=== PATIENT | female | born 1940 ===

== ENCOUNTER 2023-09-25 10:14 | Outpatient (REF) | payer MEDICARE, OTHER, SELFPAY ==
--- NOTE | ~2023-09-25 | XR_ITS ---
EXAMINATION: XR BILATERAL SHOULDERS CLINICAL INFORMATION: Pain in bilateral shoulder. TECHNIQUE: 2 views of each shoulder. COMPARISON: None available. FINDINGS: LEFT SHOULDER: Advanced degenerative changes in the acromioclavicular joint with joint space narrowing and hypertrophic change. Distal end of the clavicle appears somewhat attenuated. Glenohumeral alignment maintained with mild degenerative changes. 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 XR/XR shoulder RT min 2V IMPRESSION: 1. Advanced degenerative changes left acromioclavicular joint. 2. Mild degenerative changes right acromioclavicular joint and glenohumeral joint.
--- NOTE | ~2023-09-25 | XR_ITS ---
EXAMINATION: XR BILATERAL SHOULDERS CLINICAL INFORMATION: Pain in bilateral shoulder. TECHNIQUE: 2 views of each shoulder. COMPARISON: None available. FINDINGS: LEFT SHOULDER: Advanced degenerative changes in the acromioclavicular joint with joint space narrowing and hypertrophic change. Distal end of the clavicle appears somewhat attenuated. Glenohumeral alignment maintained with mild degenerative changes. 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 XR/XR shoulder LT min 2V IMPRESSION: 1. Advanced degenerative changes left acromioclavicular joint. 2. Mild degenerative changes right acromioclavicular joint and glenohumeral joint.
== END 2023-09-25 10:15 | disposition home or self-care (01) ==
LOC: HO.HOSX 10:14
PROVIDERS: Visit Provider Orthopaedic Surgery
DX: M25.512 Pain in left shoulder (principal); M25.511 Pain in right shoulder
CPT/HCPCS: 73030; J1010

== ENCOUNTER 2023-09-25 10:58 | Outpatient (AMB) | payer MEDICARE, OTHER, SELFPAY ==
--- NOTE | 2023-09-25 11:15 | MHC.OFFVIS ---
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 Bolton for bilateral shoulder pain. Patient reports her pain has been going on for about a month and is a 7 on the 1-10 pain scale. She is using arnicare gel, heat, cortisone injections and tylenol with some relief. She denies injury. She did have shoulder surgery but doesn't remember which one. She reports mild weakness in both of her shoulders. She continues with her home stretching program. Allergies No Known Allergies Allergy (Verified 09/25/23 11:27) Medication List - Last Reconciled 09/26/23 by Héctor Bolton MD fluticasone propionate 50 mcg/actuation sprays intranasal lisinopril 40 mg PO DAILY nystatin 1 appl topical BID timolol maleate 0.5% drps ophthalmic (eye) [facility] Social History Patient Tobacco Use Status: Never used Tobacco Current occupational status: retired Current occupation: right hand dominant Physical Exam Vital Signs: BMI result Body Mass Index 31.7 Const Other: Well-nourished well-developed very friendly female awake alert and oriented x3 in no acute distress Extrem Other: Bilateral upper extremity examination shows good capillary refill, no skin lesions noted, normal sensation light touch Bilateral shoulder examination shows forward flexion to 170 degrees, external rotation to 50 degrees, internal rotation to level L2, 4+ out of 5 strength with supraspinatus testing, positive impingement signs, no instability Results Reviewed Results Reviewed: X-rays of the patient's right shoulder show severe acromioclavicular joint narrowing, a type 2 acromion, no acute bony abnormalities X-rays of the patient's left shoulder show bony changes consistent with distal clavicle excision and acromioplasty, no acute bony abnormalities Assessment & Plan Assessment & Plan (1) Left shoulder pain: Code(s): M25.512 - Pain in left shoulder Category: Medical (2) Right shoulder pain: Code(s): M25.511 - Pain in right shoulder Category: Medical Plan Ms. Palacio presents with bilateral shoulder pains most likely due to rotator cuff tendinosis. I had a lengthy discussion with the patient regarding the treatment options. At this point the patient's symptoms are tolerable to her. She wishes to hold off on a cortisone injection. She will continue with her activity modifications and stretching program. She will contact me prior to her follow-up appointment in 2 months should her symptoms worsen in any way. I spent 21 minutes in reviewing the patient's records and imaging studies, seeing the patient and documenting in the medical record. Orders: Orders XR shoulder LT min 2V 09/25/23 M25.512 - Pain in left shoulder XR shoulder RT min 2V 09/25/23 M25.511 - Pain in right shoulder Coding Level of Care Code Est Pt Level 3 (84899) Diagnoses Left shoulder pain M25.512 Right shoulder pain M25.511
[2023-09-25 11:20] VITALS: BMI 31.7
== END 2023-09-25 11:50 | disposition home or self-care (01) ==
PROVIDERS: Visit Provider Orthopaedic Surgery
DX: M25.512 Pain in left shoulder (principal); M25.511 Pain in right shoulder
CPT/HCPCS: 99213

== ENCOUNTER 2023-12-03 10:59 | Outpatient (AMB) | payer MEDICARE, OTHER, SELFPAY ==
--- NOTE | 2023-12-03 11:05 | MHC.OFFVIS ---
Intake Visit Reasons: Right hand weakness Intake Note: Maki is a 83 year old female who presents with complaints of progressively worsening weakness in her right hand. The patient states that her symptoms have gotten worse over the last year. At this point the patient states that she has difficulty taking the top off of a bottle or jar. She also reports intermittent numbness in her right thumb and index finger. She denies any symptoms in her left hand. Allergies No Known Allergies Allergy (Verified 12/03/23 11:06) Medication List - Last Reconciled 12/03/23 by Héctor Bolton MD fluticasone propionate 50 mcg/actuation sprays intranasal lisinopril 40 mg PO DAILY nystatin 1 appl topical BID timolol maleate 0.5% drps ophthalmic (eye) [facility] Social History Patient Tobacco Use Status: Never used Tobacco Current occupational status: retired Current occupation: right hand dominant Physical Exam Const Other: Well-nourished well-developed very friendly female awake alert and oriented x3 in no acute distress Extrem Other: Right hand examination shows decreased sensation to light touch along her median nerve distribution, positive Tinel's test over her carpal tunnel, mild thenar muscle wasting Assessment & Plan Assessment & Plan (1) Weakness of right hand: Code(s): R29.898 - Other symptoms and signs involving the musculoskeletal system Category: Medical Plan Ms. Palacio presents with decreased sensation in her right thumb and index finger as well as weakness in her right hand possibly due to carpal tunnel syndrome. Thus, I will send the patient for a EMG of her right upper extremity for further evaluation. I will contact her by phone once the test results are available. Feel free to call me at any time should questions regarding her orthopedic management arise. I spent 22 minutes in reviewing the patient's records and imaging studies, seeing the patient and documenting in the medical record. Orders: Orders NE electromyogram (EMG) Today R29.898 - Other symptoms and signs involving the musculoskeletal system Coding Level of Care Code Est Pt Level 3 (41703) Diagnoses Weakness of right hand R29.898
== END 2023-12-03 11:20 | disposition home or self-care (01) ==
PROVIDERS: Visit Provider Orthopaedic Surgery
DX: R29.898 Other symptoms and signs involving the musculoskeletal system (principal)
CPT/HCPCS: 99213

== ENCOUNTER → 2023-12-03 10:59 | Outpatient (BNVA) | payer MEDICARE, OTHER, SELFPAY | PROVIDERS: Visit Provider Orthopaedic Surgery | DX: R29.898 Other symptoms and signs involving the musculoskeletal system (principal) | CPT/HCPCS: 99212 ==

== ENCOUNTER 2023-12-31 13:15 | Outpatient (REF) | payer MEDICARE, OTHER, SELFPAY ==
--- NOTE | 2023-12-31 | EMG_ITS ---
Chief complaint: Right hand weakness Reason for referral: Evaluate for Carpal Tunnel Syndrome Referred by: Dr. Bolton Procedure done: Are upper extremity NCS/EMG Precautions and/or limitations: None The limb temperature was monitored continuously and remained between 32-36 degrees C during the performance of the NCS. Nerve Conduction Studies Anti Sensory Summary Table ?Stim Site NR Onset (ms) Norm Onset (ms) Peak (ms) Norm Peak (ms) O-P Amp (?V) Norm O-P Amp Site1 Site2 Delta-0 (ms) Dist (cm) Maurizio (m/s) Norm Maurizio (m/s) Right Median Anti Sensory (2nd Digit) Wrist ? 2.8 3.5 <3.6 26.8 >10 Wrist 2nd Digit 2.8 14.0 50 Right Ulnar Anti Sensory (5th Digit) Wrist ? 2.5 3.1 <3.7 26.9 >15.0 Wrist 5th Digit 2.5 14.0 56 Motor Summary Table ?Stim Site NR Onset (ms) Norm Onset (ms) O-P Amp (mV) Norm O-P Amp iAmp (mV) Amp (1st) (%) Site1 Site2 Delta-0 (ms) Dist (cm) Maurizio (m/s) Norm Maurizio (m/s) Right Median Motor (Abd Poll Brev) Wrist ? 3.9 <3.9 11.9 >4.5 14.2 100.0 Elbow Wrist 4.1 20.0 49 >45 Elbow ? 8.0 12.0 14.3 100.8 Right Ulnar Motor (Abd Dig Minimi) Wrist ? 2.7 <3.0 8.1 >5 9.4 100.0 B Elbow Wrist 3.6 20.0 56 >45 B Elbow ? 6.3 7.6 9.0 93.8 A Elbow B Elbow 1.4 10.0 71 >45 A Elbow ? 7.7 7.0 8.5 86.4 Comparison Summary Table ?Stim Site NR Peak (ms) Norm Peak (ms) P-T Amp (?V) Site1 Site2 Delta-P (ms) Norm Delta (ms) Right Median/Radial Dig I Comparison (Digit 1 - 10cm) Median ? 2.9 <2.9 23.6 Median Radial 0.2 Radial ? 2.7 <2.8 15.8 EMG ?Side Muscle Nerve Root Ins Act Fibs Psw Amp Dur Poly Recrt Int Pat Comment Right 1stDorInt Ulnar C8-T1 Nml Nml Nml Nml Nml 0 Nml Complete Right FlexCarRad Median C6-7 Nml Nml Nml Nml Nml 0 Nml Complete Right Biceps Musculocut C5-6 Nml Nml Nml Nml Nml 0 Nml Complete Right Triceps Radial C6-7-8 Nml Nml Nml Nml Nml 0 Nml Complete Right Deltoid Axillary C5-6 Nml Nml Nml Nml Nml 0 Nml Complete FINDINGS: All motor and sensory nerves tested showed normal latencies, amplitudes and conduction velocities. Concentric needle EMG was performed in selected muscles of the right upper extremity. Study did not reveal signs of electric abnormalities as shown in the table above. IMPRESSION: 1. This is a normal study. 2. There is no electrodiagnostic evidence for median neuropathy, ulnar neuropathy, brachial plexopathy, or cervical radiculopathy. Thank you for your kind referral. Emily Cohn MD, KOBE Board Certified, [place] [employer] (ABPMR) Board Certified, [place] [employer] Electro[employer] (ABEM) CODIN [address] MTDD
== END 2023-12-31 13:16 | disposition home or self-care (01) ==
LOC: HO.NEURO 13:15
PROVIDERS: PCP Family Medicine; Visit Provider Orthopaedic Surgery
DX: R29.898 Other symptoms and signs involving the musculoskeletal system (principal)
CPT/HCPCS: 95886; 95909

== ENCOUNTER → 2023-12-31 13:18 | Outpatient (BNV) | payer MEDICARE, OTHER, SELFPAY | PROVIDERS: PCP Family Medicine; Visit Provider Physical Medicine & Rehabilitation | DX: M62.81 Muscle weakness (generalized) (principal) | CPT/HCPCS: 95886; 95909 ==